=== PATIENT | female | born 1950 | race Asian ===

== ENCOUNTER 2016-07-30 10:36 | Emergency (ER) | payer OTHER ==
[2016-07-30 10:55] VITALS: BP 147/70; PULSE 80; TEMP 98.1; BMI 23.4
[2016-07-30 11:28] LABS: URINE APPEARANCE CLEAR; URINE BILIRUBIN NEGATIVE (NEGATIVE); URINE BLOOD NEGATIVE (NEGATIVE); URINE COLOR DKYELLOW; URINE GLUCOSE (UA) 3+ (NEGATIVE); URINE KETONE TRACE (NEGATIVE); URINE NITRITE NEGATIVE (NEGATIVE); URINE UROBILINOGEN NEGATIVE E.U./dl (0.2-1.0)
[2016-07-30] MEDS ORDERED: FLUCONAZOLE 50 MG TABLET PO ONE (11:28)
[2016-07-30] MEDS ORDERED: NAPROXEN 500 MG TABLET (FP) PO ONE (11:30)
[2016-07-30] MEDS ORDERED: NAPROXEN 500 MG TABLET (FP) ONE (11:35)
[2016-07-30] MEDS ORDERED: FLUCONAZOLE 100 MG TABLET (UD) ONE (11:35)
--- NOTE | 2016-07-30 11:42 | PDOC ---
[id number] [id number] VAGINAL PAIN/ITCH Time Seen by Provider: 07/30/16 11:11 History Source: Patient Exam Limitations: No Limitations - History of Present Illness Travel History: No Initial Comments: 07/30/16 11:37 66 yr female history of HTN, NIDDM, high cholesterol presents with vaginal itching and pain for 4 days. Pt saw DUDE WRANGLER 2 days go was given a topical steroid cream which pt states is not helping. Pt denies discharge, has urinary frequency. Denies any sexual activity. no fever, no back or abd pain. Past History - Past Medical History Allergies/Adverse Reactions: Allergies Allergy/AdvReac Type Severity Reaction Status Date / Time No Known Allergies Allergy Verified 07/30/16 10:51 Home Medications: Ambulatory Orders Insulin (Levemir) [Levemir Flexpen -] 100 units SQ DAILY 07/30/16 Metformin HCl [Metformin HCl ER] 500 mg PO BID 07/30/16 Diabetes: Yes HTN: Yes Hypercholesterolemia: Yes - Psycho/Social/Smoking Cessation Hx Suicidal Ideation: No Smoking History: Never smoked Abd/GI Specific PMHX - Complaint Specific PMHX Colitis: No Diverticulitis: No Gall Bladder Disease: No GERD: No Hepatitis: No Irritable Bowel Synd (IBS): No Pancreatitis: No GI Ulcer Disease: No Review of Systems - Review of Systems Able to Perform ROS?: Yes Is the patient limited Italian proficient: No Constitutional: No: Symptoms Reported HEENTM: No: Symptoms Reported Respiratory: No: Symptoms reported Cardiac (ROS): No: Symptoms Reported ABD/GI: No: Symptoms Reported : Yes: Symptoms Reported *Physical Exam - Vital Signs Last Vital Signs Temp Pulse Resp BP Pulse Ox 98.1 F 80 18 147/70 100 07/30/16 10:53 07/30/16 10:53 07/30/16 10:53 07/30/16 10:53 07/30/16 10:53 - Physical Exam General Appearance: Yes: Nourished, Appropriately Dressed HEENT: positive: EOMI, ALESIA, Normal ENT Inspection, TMs Normal, Pharynx Normal Neck: positive: Supple. negative: Tender Respiratory/Chest: positive: Lungs Clear, Normal Breath Sounds Cardiovascular: positive: Regular Rhythm, Regular Rate Female Pelvic Exam: positive: normal external exam, normal adnexa, other (dry vaginal vault, mild erythema no discharge or lesions). negative: discharge, Bartholin mass, adnexal tenderness, vaginal bleeding Gastrointestinal/Abdominal: positive: Normal Bowel Sounds, Soft Lymphatic: negative: Adenopathy Musculoskeletal: positive: Normal Inspection Extremity: positive: Normal Capillary Refill, Normal Inspection, Normal Range of Motion Medical Decision Making - Medical Decision Making 07/30/16 12:10 cc: vaginal itching and burning , urinary frequency no vaginal bleding or discharge no abd pain will check for UTI, genital culture sent will give diflucan for possible yeast as pt is DM daughter states pt has trouble controlling her sugar that her HgbA1C is consistently high 07/30/16 15:12 *DC/Admit/Observation/Transfer Diagnosis at time of Disposition: Itching of vagina - Discharge Dispostion Disposition: HOME Condition at time of disposition: Good - Referrals Referrals: Lake Caruso MD [Primary Care Provider] - - Patient Instructions Additional Instructions: apply the cream three times a day that you allready have from your financial compliance examiner drink pleanty of water you have been given one dose medication for any yeast take motrin 600mg every 6hrs for pain follow with your financial compliance examiner next week if symptoms worsen or persist
[2016-07-30 11:44] LABS: URINE PROTEIN 1+ (NEGATIVE)
[2016-07-30 11:45] LABS: URINE LEUK ESTERASE TRACE (NEGATIVE)
[2016-07-30 12:08] LABS: URINE BACTERIA FEW /hpf (NONE SEEN); URINE MUCUS MODERATE; URINE RBC NONE SEEN /hpf (0-3)
== END 2016-07-30 12:32 | disposition home or self-care (01) ==
LOC: JERFT 10:36 → JER 10:36 → JERFT 12:32
DX: L29.2 Pruritus vulvae (principal); E11.9 Type 2 diabetes mellitus without complications; Z79.4 Long term (current) use of insulin; Z79.84 Long term (current) use of oral hypoglycemic drugs; I10 Essential (primary) hypertension; E78.00 Pure hypercholesterolemia, unspecified
CPT/HCPCS: 36415; 81003; 81015; 87070; 87205; 87491; 87591; 99281-25

== ENCOUNTER 2018-12-23 09:39 | Day surgery (SDC) | payer OTHER ==
[2018-12-23 10:16] VITALS: BMI 24.7
[2018-12-23 11:02] VITALS: TEMP 97.5
[2018-12-23 12:15] VITALS: BP 134/80; PULSE 85
== END 2018-12-23 11:45 | disposition home or self-care (01) ==
LOC: JASU-ENDO 09:39
PROVIDERS: ATTEND Internal Medicine Gastroenterology
PROC: 0DB68ZX Excision of Stomach, Via Natural or Artificial Opening Endoscopic, Diagnostic (ICD-10-PCS; principal; 2018-12-23 09:15)
DX: R10.13 Epigastric pain (principal); Z80.0 Family history of malignant neoplasm of digestive organs; K21.9 Gastro-esophageal reflux disease without esophagitis; K44.9 Diaphragmatic hernia without obstruction or gangrene
CPT/HCPCS: 82962; 88305-TC; 88342-TC

== ENCOUNTER 2019-07-30 12:43 | Inpatient (IN) | payer OTHER ==
--- NOTE | 2019-07-30 12:59 | PDOC ---
History of Present Illness - General Chief Complaint: Constipation Stated Complaint: ABD PAIN Time Seen by Provider: 07/30/19 12:58 History Source: Patient Exam Limitations: No Limitations - History of Present Illness Initial Comments: 69 year old female with PMH chronic constipation, HTN, hyperthyroidism on Methimazole, IDDM, GERD presented to ED for LLQ pain x2 weeks, worsening x1 week ago. Pt reported intermittent cramping LLQ pain, no alleviating or aggravating factors, no radiation. Pt admitted to constipation, last LM x4 days ago with Lactulose use. Pt reported she has tried colace and senna at home without improvement of symptoms. Pt denied weight loss, fever, chills, nausea, vomiting, lightheadedness, chest pain, shortness of breath. Pt reported last colonscopy 2019, normal and EGD 2019, normal. Pt reported she completed 7 days of Ceftriaxone PO, given to her by Urgent Care just over a week ago, without improvement of symptoms. ROS General: denied fever, chills, generalized weakness. HEENT: denied sore throat, rhinorrhea, ear pain. Cardiovascular: denied chest pain, palpitations, syncope, diaphoresis. Respiratory: denied shortness of breath, cough, sputum production, hemoptysis. Gastrointestinal: admitted to abdominal pain, bloating. denied nausea, vomiting , diarrhea, constipation, blood in stool. Genitourinary: denied dysuria, increased urinary frequency, hematuria, urinary incontinence, flank pain. Back: denied back pain. Musculoskeletal: denied joint pain, muscle pain, joint swelling. Neurological: denied headache, dizziness, numbness, tingling, weakness. Integumentary: denied rash, laceration, abrasion. Hematologic/Lymphatic: denied bruising or bleeding. PE Constitutional: Well-nourished, Well-developed, appearing stated age. HEENT: head is normocephalic, atraumatic. EOMI. PERRLA. no posterior pharyngeal erythema. no tonsillar swelling or exudates bilaterally. uvula midline. no peritonsillar swelling. no jaw tenderness or misalignment. Neck: supple. Full ROM. Cardiovascular: regular heart rhythm. Normal S1 and S2. no murmurs. no pericardial friction rub. Respiratory: clear to auscultation bilaterally. no crackles, rhonchi or wheezing. no stridor. Gastrointestinal: soft, bloated, diffuse tenderness worse in the LLQ. normal bowel sounds. no rebound, guarding, or masses. Extremities: peripheral pulses intact and equal. no lower extremity edema noted. Neurological: CN 2-12 grossly intact. moves all four extremities. Psych: awake, alert, oriented x3. follows commands. answers questions appropriately. Rectal: external hemorroid, nonthrombosed. no fissure. good rectal tone. no stool palpated in rectal vault. Past History - Past Medical History Allergies/Adverse Reactions: Allergies Allergy/AdvReac Type Severity Reaction Status Date / Time No Known Allergies Allergy Verified 07/30/19 12:48 Home Medications: Ambulatory Orders metFORMIN HCL [Glucophage -] 1,000 mg PO BID 08/18/14 Simvastatin [Zocor -] 20 mg PO HS 05/02/16 Insulin (Levemir) [Levemir Flexpen -] 20 units SQ DAILY 07/30/16 Atorvastatin Ca [Lipitor] 20 mg PO HS 12/23/18 Gabapentin 100 mg PO DAILY 12/23/18 Lubiprostone [Amitiza] 24 mcg PO BID #180 capsule 12/23/18 Methimazole [Tapazole -] 12.5 mg PO DAILY 12/23/18 Ranitidine HCl 150 mg PO BID #180 tablet 12/23/18 Aspirin 81 mg PO 07/31/19 Folic Acid 1 mg PO 07/31/19 Glipizide 5 mg PO 07/31/19 Losartan Potassium 25 mg PO 07/31/19 Multivitamin/Iron/Folic Acid [Centrum Adults Tablet] 1 07/31/19 - Psycho Social/Smoking Cessation Hx Smoking History: Never smoked Information on smoking cessation initiated: No Hx Alcohol Use: No Drug/Substance Use Hx: No Substance Use Type: None Hx Substance Use Treatment: No *Physical Exam - Vital Signs Last Vital Signs Temp Pulse Resp BP Pulse Ox 98 F 110 H 17 115/68 98 07/30/19 12:47 07/30/19 12:47 07/30/19 12:47 07/30/19 12:47 07/30/19 12:47 ED Treatment Course - LABORATORY CBC & Chemistry Diagram: 07/30/19 13:50 07/30/19 13:50 Medical Decision Making - Medical Decision Making 69 year old female with above PMH presented to ED for LLQ pain x2 weeks associated with constipation. Initial Vital Signs Temp Pulse Resp BP Pulse Ox 98 F 110 H 17 115/68 98 07/30/19 12:47 07/30/19 12:47 07/30/19 12:47 07/30/19 12:47 07/30/19 12:47 Afebrile. Tachycardic. No tachypnea. No hypotension. No hypoxia on room air. Labs ordered: CBC, CMP, Mg, lactate, coags, T&S, UA/UC Imaging ordered: CXR, abdominal upright XR, CT abdomen/pelvis with IV contrast + PO contrast Medications ordered: Tylenol IV, normal saline bolus 1000 cc once NPO EKG performed at 1325: rate 99, regular rhythm, normal axis, normal intervals, QTc 462, no acute ST changes. 07/30/19 14:33 CXR report: Name: [facility] DEPARTMENT OF RADIOLOGY Phys: Belkis Frazier RESIDENT : 1950 Age: 69 Sex: F [facility] Acct: [id number] Loc: [address] Exam Date: 07/30/19 Status: [facility] [place] [address] Unit Number: [id number] EXAM#: TYPE/EXAM: RESULT: RAD/CHEST - PA Chest: Obstruction. Pain. Single view of the chest reveals contrast in the stomach, clear lungs, normal mediastinum and sharp angles. There are degenerative changes. Since 05/02/2016 there is no change of an adverse nature. Correlation recommended Reported By: Elias Bernard MD 07/30/19 1429 KUB report: Name: [facility] DEPARTMENT OF RADIOLOGY Phys: Belkis Frazier RESIDENT : 1950 Age: 69 Sex: F [facility] Acct: [id number] Loc: [address] Exam Date: 07/30/19 Status: [facility] [place] [address] Unit Number: [id number] EXAM#: TYPE/EXAM: RESULT: [id number] RAD/ABDOMEN FLAT UPRIGHT Abdomen: Pain. Possible obstruction 2 views of the abdomen reveal contrast in the stomach and proximal small bowel loops and the bowel appears unremarkable. There appears to be a large amount of retained stool seen in the right colon and proximal transverse colon. Free air or pneumatosis is not seen. The lung bases appear well aerated. Correlation recommended. Reported By: Elias Bernard MD 07/30/19 1438 07/30/19 14:41 Laboratory Last Values WBC 9.7 K/mm3 (4.0-10.0) 07/30/19 13:50 RBC 4.68 M/mm3 (3.60-5.2) 07/30/19 13:50 Hgb 13.3 GM/dL (10.7-15.3) 07/30/19 13:50 Hct 39.2 % (32.4-45.2) 07/30/19 13:50 MCV 83.8 fl (80-96) 07/30/19 13:50 MCH 28.5 pg (25.7-33.7) 07/30/19 13:50 MCHC 33.9 g/dl (32.0-36.0) 07/30/19 13:50 RDW 13.1 % (11.6-15.6) 07/30/19 13:50 Plt Count 323 K/MM3 (134-434) 07/30/19 13:50 MPV 9.7 fl (7.5-11.1) D 07/30/19 13:50 Absolute Neuts (auto) 6.1 K/mm3 (1.5-8.0) 07/30/19 13:50 Neutrophils % 62.6 % (42.8-82.8) 07/30/19 13:50 Lymphocytes % 27.0 % (8-40) 07/30/19 13:50 Monocytes % 6.2 % (3.8-10.2) 07/30/19 13:50 Eosinophils % 3.6 % (0-4.5) D 07/30/19 13:50 Basophils % 0.6 % (0-2.0) 07/30/19 13:50 Nucleated RBC % 0 % (0-0) 07/30/19 13:50 PT with INR 11.20 SEC (9.7-13.0) 07/30/19 13:50 INR 0.95 (0.83-1.09) 07/30/19 13:50 PTT (Actin FS) 22.7 SECONDS (25.2-36.5) L 07/30/19 13:50 Sodium 136 mmol/L (136-145) 07/30/19 13:50 Potassium 5.1 mmol/L (3.5-5.1) 07/30/19 13:50 Chloride 101 mmol/L (98-107) 07/30/19 13:50 Carbon Dioxide 26 mmol/L (21-32) 07/30/19 13:50 Anion Gap 8 MMOL/L (8-16) 07/30/19 13:50 BUN 17.6 mg/dL (7-18) 07/30/19 13:50 Creatinine 1.1 mg/dL (0.55-1.3) 07/30/19 13:50 Est GFR (CKD-EPI)AfAm 58.91 07/30/19 13:50 Est GFR (CKD-EPI)NonAf 50.83 07/30/19 13:50 Random Glucose 399 mg/dL (74-106) H 07/30/19 13:50 Lactic Acid 5.1 mmol/L (0.4-2.0) H* 07/30/19 13:50 Calcium 9.0 mg/dL (8.5-10.1) 07/30/19 13:50 Magnesium 2.0 mg/dL (1.8-2.4) 07/30/19 13:50 Total Bilirubin 0.3 mg/dL (0.2-1) 07/30/19 13:50 AST 36 U/L (15-37) 07/30/19 13:50 ALT 53 U/L (13-61) 07/30/19 13:50 Alkaline Phosphatase 95 U/L (45-117) 07/30/19 13:50 Total Protein 7.2 g/dl (6.4-8.2) 07/30/19 13:50 Albumin 3.8 g/dl (3.4-5.0) 07/30/19 13:50 Urine Color Yellow 07/30/19 14:05 Urine Appearance Clear 07/30/19 14:05 Urine pH 5.0 (5.0-8.0) 07/30/19 14:05 Ur Specific [place] 1.040 (1.010-1.035) H 07/30/19 14:05 Urine Protein Negative (NEGATIVE) 07/30/19 14:05 Urine Glucose (UA) 3+ (NEGATIVE) H 07/30/19 14:05 Urine Ketones Negative (NEGATIVE) 07/30/19 14:05 Urine Blood Negative (NEGATIVE) 07/30/19 14:05 Urine Nitrite Negative (NEGATIVE) 07/30/19 14:05 Urine Bilirubin Negative (NEGATIVE) 07/30/19 14:05 Urine Urobilinogen 0.2 mg/dL (0.2-1.0) 07/30/19 14:05 Ur Leukocyte Esterase Negative (NEGATIVE) 07/30/19 14:05 No leukocytosis. Lactic acidosis. No electrolyte abnormalities. No VANE. No transaminitis. No UTI. Glycosuria. Hyperglycemia without anion gap. Will continue to IV hydrate, no obstruction seen on KUB. -Medications ordered: normal saline bolus [address] abdomen/pelvis at 1600. 07/30/19 16:44 CT report: Name: [facility] DEPARTMENT OF RADIOLOGY Phys: Belkis Frazier RESIDENT : 1950 Age: 69 Sex: F [facility] Acct: [id number] Loc: [address] Exam Date: 07/30/19 [facility] [place] [address] Unit Number: [id number] EXAM#: TYPE/EXAM: RESULT: [id number] CT/ABDOMEN PELVIS CT WITH CONTR Abdomen and pelvis CT with contrast Clinical information: left lower quadrant pain, constipation; ? diverticulitis, obstruction Multiplanar imaging was performed utilizing intravenous as well as oral contrast. No prior CT/MRI studies are available at this facility for direct comparison. No evidence of pneumoperitoneum, abscess, free intraperitoneal fluid or bowel obstruction. Administered oral contrast is noted to opacify to the level of the lower sigmoid colon. There is possible minimal colonic diverticulosis without evidence of acute diverticulitis. The appendix appears unremarkable. There is moderate left-sided colonic fecal retention. Mild left renal upper pole cortical scarring. The liver, spleen, pancreas, gallbladder, adrenal glands and right kidney demonstrate no discrete pathology. There is no aortic aneurysm. No definite lymphadenopathy is seen on the basis of size criteria. There is no obvious CT evidence of pelvic soft tissue pathology. The urinary bladder demonstrates no gross intrinsic or extrinsic abnormality. No obvious acute osseous pathology is seen. Impression: No definite CT findings of acute pathology are noted involving the abdomen/pelvis. Moderate colonic fecal retention. Possible minimal colonic diverticulosis without evidence of acute diverticulitis. Mild left renal upper pole cortical scarring The partially imaged lower chest demonstrates mild bilateral groundglass attenuation which could be on the basis of small airway disease. Correlate clinically. There is minimal to mild left lower lobe discoid atelectasis/scarring. Reported By: Anirudh Hutchinson MD 07/30/19 1631 Medications ordered: fleet enema, miralax, mag-citrate 07/30/19 17:27 Rpt Lactate 2.9 Medications ordered: normal saline bolus 1000 cc once 07/30/19 18:11 No bowel movement. Medications ordered: Lactulose 07/30/19 19:01 No bowel movement. Pt will need to be admitted for lactic acidosis, intractable constipation. PCP, Edgar Reid MD, paged. 07/30/19 19:09 Dr. Stevens call center professional, signout given. Discharge - Discharge Information Problems reviewed: Yes Clinical Impression/Diagnosis: Lactic acidosis, Constipation Condition: Stable Disposition: HOME - Admission Yes - Follow up/Referral - Patient Discharge Instructions - Post Discharge Activity
[2019-07-30] MEDS ORDERED: SODIUM CHLORIDE 1,000 ML IV STA ×3 (13:15→17:26)
[2019-07-30] MEDS ORDERED: ACETAMINOPHEN 1000 MG/100 ML VIAL (NON FORMULARY) IVPB ONE (13:15)
[2019-07-30] MEDS ORDERED: ACETAMINOPHEN INJECTION 100 ML IVPB ONE (13:30)
[2019-07-30 14:09] LABS: BASO % 0.6 % (0-2.0); EOS % 3.6 % (0-4.5); HEMATOCRIT 39.2 % (32.4-45.2); HEMOGLOBIN 13.3 GM/dL (10.7-15.3); MCH 28.5 pg (25.7-33.7); MCHC 33.9 g/dl (32.0-36.0); MEAN CELL VOLUME 83.8 fl (80-96); MEAN PLT VOLUME 9.7 fl (7.5-11.1); MONO % 6.2 % (3.8-10.2); NEUT % 62.6 % (42.8-82.8); PLATELET COUNT 323 K/MM3 (134-434); RBC 4.68 M/mm3 (3.60-5.2); RDW 13.1 % (11.6-15.6); WHITE BLOOD COUNT 9.7 K/mm3 (4.0-10.0)
[2019-07-30 14:25] LABS: INR 0.95 (0.83-1.09); PROTHROMBIN TIME (PATIENT) 11.2 SEC (9.7-13.0)
[2019-07-30 14:26] LABS: URINE APPEARANCE CLEAR; URINE BILIRUBIN NEGATIVE (NEGATIVE); URINE COLOR YELLOW; URINE GLUCOSE (UA) 3+ (NEGATIVE); URINE KETONE NEGATIVE (NEGATIVE); URINE LEUK ESTERASE NEGATIVE (NEGATIVE); URINE NITRITE NEGATIVE (NEGATIVE); URINE PROTEIN NEGATIVE (NEGATIVE); URINE UROBILINOGEN 0.2 mg/dL (0.2-1.0)
[2019-07-30 14:28] LABS: ACTIVATED PTT 22.7 SECONDS (25.2-36.5)
[2019-07-30 14:39] LABS: ALBUMIN 3.8 g/dl (3.4-5.0); BILIRUBIN,TOTAL 0.3 mg/dL (0.2-1); BLOOD UREA NITROGEN 17.6 mg/dL (7-18); CREATININE 1.1 mg/dL (0.55-1.3); POTASSIUM 5.1 mmol/L (3.5-5.1); TOT PROT 7.2 g/dl (6.4-8.2)
--- NOTE | 2019-07-30 16:09 | PDOC ---
Documentation entered by Usha Tellez SCRIBE, acting as scribe for Helen Tolentino MD. Helen Tolentino MD: This documentation has been prepared by the Rosalinda ge Xhesika, SCRIBE, under my direction and personally reviewed by me in its entirety. I confirm that the documentation accurately reflects all work, treatment, procedures, and medical decision making performed by me. Attending Attestation - Resident Resident Name: KarinBelkis - ED Attending Attestation I have performed the following: I have examined & evaluated the patient, The case was reviewed & discussed with the resident, I agree w/resident's findings & plan, Exceptions are as noted - HPI HPI: 07/30/19 13:35 The patient is a 69 year old female with a significant PMH of HTN, hypothyroidism, and chronic constipation who presents to the emergency department for 2 weeks of worsening LLQ abdominal pain. Pt describes her pain as intermittent, cramping pain, associated with constipation. Pt states her last normal BM was 4 days ago with Lactulose use. The patient denies chest pain, shortness of breath, headache and dizziness. Denies fever, chills, cough, nausea, vomiting, diarrhea. Denies dysuria, frequency, urgency and hematuria. Allergies: NKDA - Physicial Exam PE: 07/30/19 16:07 Patient is awake alert no acute distress lungs are clear bilaterally heart is regular with any murmurs rubs or gallops abdomen is soft there is a left lower quadrant fullness and mild tenderness extremities are warm and well-perfused neurologically patient is awake alert and oriented x3 skin is warm and dry no rash - Medical Decision Making 07/30/19 16:08 6-year-old female history of hypothyroid hypertension here today complaining of 2 weeks of constipation. Did take some lactulose at home no relief also complaining of left lower quadrant pain no fevers no chills no nausea no vomiting no previous surgical history differential includes diverticulitis constipation colonic mass other cancer anemia electrolyte abnormality or dehydration plan CT abdomen pelvis basic labs stool occult and UA 07/30/19 16:09 pt lactate was 5, sugar elevated at 300's . will hydrate with normal saline.
--- NOTE | 2019-07-30 16:33 | EKG ---
Test Reason : Blood Pressure : / mmHG Vent. Rate : 099 BPM Atrial Rate : 099 BPM P-R Int : 146 ms QRS Dur : 090 ms QT Int : 360 ms P-R-T Axes : 057 057 039 degrees QTc Int : 462 ms POOR DATA QUALITY, INTERPRETATION MAY BE ADVERSELY AFFECTED NORMAL SINUS RHYTHM NORMAL ECG Confirmed by MD ROCIO, JEANNETTE ([id number]) on 07/30/2019 4:32:56 PM Referred By: Confirmed By:JEANNETTE CHAN MD
[2019-07-30] MEDS ORDERED: SODIUM PHOSPHATE/NA BIPHOS 133 ML ENEMA PR ONE (16:56)
[2019-07-30] MEDS ORDERED: MAGNESIUM CITRATE 300 ML BOTTLE PO ONE (17:25)
[2019-07-30] MEDS ORDERED: POLYETHYLENE GLYCOL 3350 119 GM BTL PO ONE (17:27)
[2019-07-30] MEDS ORDERED: MAGNESIUM CITRATE 300 ML BOTTLE ONE (17:33)
[2019-07-30] MEDS ORDERED: LACTULOSE 20 GM/30 ML UDC (FOR ORAL USE ONLY) PO ONE (18:03)
[2019-07-30] MEDS ORDERED: LACTULOSE 20 GM/30 ML UDC (FOR ORAL USE ONLY) ONE (18:17)
[2019-07-31 00:54] VITALS: BMI 24.0
[2019-07-31 09:51] VITALS: BP 152/85; PULSE 85; TEMP 98
--- NOTE | 2019-07-31 11:01 | HP ---
DATE OF ADMISSION: 07/30/2019 DATE OF DICTATION: 07/31/2019 This is a 69-year-old female, patient of Dr. Reid, came to the emergency room yesterday with complaints of left lower quadrant pain and constipation. Patient was given medication for constipation, did not have any result. Because of the pain and constipation, she was admitted. After admission, patient had bowel movement. This morning, patient is feeling better. She is also diabetic, hyperthyroid, on multiple medications at home including insulin 25 units in the night. PHYSICAL EXAMINATION: General: Now, alert, oriented, not in distress. Vital Signs: BP 156/81, pulse 81, respiration 20, temperature 98. HEENT: Unremarkable. Neck: Supple. No JVD. Lungs: Clear. Heart: S1, S2 normal. No S3 or S4. Abdomen: Soft, nontender. Extremities: Legs: No edema. Neurological: Grossly normal. LABORATORY REPORTS: WBC 9.7, hemoglobin 13.3, and hematocrit 39.2. Chemistry: Electrolytes are normal. Blood sugar was 399. Lactic acid at the time of admission 5.1. This morning, it is 1.5. CT of the pelvis and abdomen negative other than constipation. Chest x-ray negative. Abdominal x-ray also showed a large amount of retained feces. EKG is normal. IMPRESSION: 1. Constipation. 2. Abdominal pain. 3. Diabetes. 4. Hyperthyroidism. 5. Hyperlipidemia. PLAN: Continue her medications at home: Glipizide 5 mg once a day, losartan 25 mg once a day, metformin 1000 mg once a day, Tapazole 5 mg, 2-1/2 tablets once a day, folic acid 1 mg once a day, atorvastatin 20 mg once a day, aspirin 81 mg once a day. Patient is discharged home. Will be followed with Dr. Reid in the office. Jenn [id number]
== END 2019-07-31 10:36 | disposition home or self-care (01) | DRG 392 ==
LOC: JER 12:43 → JERBED 19:23 → J6S 23:40
PROVIDERS: ADMIT Internal Medicine; ATTEND Internal Medicine
DX: K59.00 Constipation, unspecified (principal); E87.2 Acidosis; E11.65 Type 2 diabetes mellitus with hyperglycemia; E78.5 Hyperlipidemia, unspecified; E05.90 Thyrotoxicosis, unspecified without thyrotoxic crisis or storm; R10.32 Left lower quadrant pain; K21.9 Gastro-esophageal reflux disease without esophagitis
CPT/HCPCS: 36415; 71045-TC-FY; 74019-TC-FY; 74177-TC; 80053; 81003; 83605; 83735; 85025; 85610; 85730; 86850; 86900; 86901; 87086; 93005; 93010; 99285-25; J0131; J7030; Q9967

== ENCOUNTER 2020-12-10 05:13 | Day surgery (SDC) | payer OTHER ==
[2020-12-08 15:39] VITALS: BMI 23.9
[2020-12-10 11:23] VITALS: PULSE 71
[2020-12-10 11:41] VITALS: BP 145/68; TEMP 97
== END 2020-12-10 11:20 | disposition home or self-care (01) ==
LOC: JASU-ENDO 05:13
PROVIDERS: ATTEND Internal Medicine Gastroenterology
PROC: 0DJD8ZZ Inspection of Lower Intestinal Tract, Via Natural or Artificial Opening Endoscopic (ICD-10-PCS; principal; 2020-12-10 10:00)
DX: Z12.11 Encounter for screening for malignant neoplasm of colon (principal); K64.8 Other hemorrhoids; R19.4 Change in bowel habit; Z80.0 Family history of malignant neoplasm of digestive organs; I10 Essential (primary) hypertension; E11.9 Type 2 diabetes mellitus without complications; Z79.4 Long term (current) use of insulin